=== PATIENT | female | born 2000 | race Asian ===

== ENCOUNTER 2021-06-04 03:40 | Emergency (ER) | payer SELFPAY ==
[~2021-06-04] VITALS: Ht 165.1 cm; Wt 50.3 kg
[2021-06-04 03:40] VITALS: BP_SYST 134
--- NOTE | 2021-06-04 03:45 | NUR ---
Patient triaged and placed in waiting room. VSS and patient appears in no acute distress at this time. Accompanied by BOYFRIEND, awaiting available bed, and MD notified of need for MSE.
--- NOTE | 2021-06-04 04:42 | NUR ---
DR PENAOLZA OUT TO WAITING ROOM TO EVALUATE PT.
[2021-06-04] MEDS ORDERED: METOCLOPRAMIDE HCL 10 MG/2 ML VIAL IVP ONE (05:00)
[2021-06-04] MEDS ORDERED: DIPHENHYDRAMINE INJ 50 MG/ML VIAL IVP ONE (05:00)
[2021-06-04] MEDS ORDERED: ONDANSETRON HCL 4 MG/2 ML VIAL IVP ONE (05:00)
--- NOTE | 2021-06-04 05:49 | NUR ---
BROUGHT BACK TO BED #3 AND REPORT GIVEN TO NURSE
[2021-06-04 05:53] LABS: BASOPHILS % (AUTO) 0.3 % (0.0-2.0); EOSINOPHILS # (AUTO) 0.2 K/uL (0.0-0.4); EOSINOPHILS % (AUTO) 2.3 % (0.0-4.0); HEMATOCRIT 40.1 % (36-48); HEMOGLOBIN 13.5 g/dL (12.0-16.0); LYMPHOCYTES # (AUTO) 1.2 K/uL (1.0-5.5); LYMPHOCYTES % (AUTO) 11.7 % (20.5-51.5); MEAN CORPUSCULAR HEMOGLOBIN 29 pg (27-31); MEAN CORPUSCULAR HGB CONC 34 % (32-36); MEAN CORPUSCULAR VOLUME 88 fL (79.0-98.0); MONOCYTES # (AUTO) 0.4 K/uL (0.0-1.0); MONOCYTES % (AUTO) 4.3 % (1.7-9.3); NEUTROPHILS # (AUTO) 8.2 K/uL (1.8-7.7); NEUTROPHILS % (AUTO) 81.4 % (40.0-70.0); PLATELET COUNT (AUTO) 157 K/uL (130-430); RED BLOOD CELL COUNT(AUTO) 4.58 MIL/uL (4.2-6.2); RED CELL DISTRIBUTION WIDTH 12.2 % (9.0-15.0); WHITE BLOOD COUNT (AUTO) 10.1 K/uL (4.5-11.0)
--- NOTE | 2021-06-04 06:00 | NUR ---
PT WALKED IN C/O ABDOMINAL PAIN SINCE 0200 AFTER DRINKING ORANGE JUICE. PT REPORTS +NAUSEA AND VOMITING. PT ALSO REPORTS SELF MEDICATING WITH KETAMINE. DENIES DIARRHEA OR CONSTIPATION.
[2021-06-04 06:03] LABS: CALCIUM 8.7 mg/dL (8.4-11.0); CREATININE 0.69 mg/dL (0.55-1.30); POTASSIUM 4.2 mmol/L (3.5-5.1)
[2021-06-04 06:07] LABS: TOTAL BILIRUBIN 0.3 mg/dL (0.0-1.0)
--- NOTE | 2021-06-04 06:15 | NUR ---
# 20 gauge angiocath placed to LAC. Use of asceptic technique. Opsite placed over site. Blood return noted. Flushed with 10 cc of normal saline. No evidence of infiltration noted. Patient tolerated well.
--- NOTE | 2021-06-04 07:00 | NUR ---
REPORT GIVEN TO LINDA BARR
--- NOTE | 2021-06-04 07:15 | NUR ---
PT RESTING IN GURNEY, AWAKE, ALERT, EVEN UNLABORED RESPIRATIONS. NO DISTRESS NOTED
[2021-06-04] MEDS ORDERED: ONDA4TAB5 PO (07:23)
[2021-06-04 07:34] VITALS: BP_SYST 127
--- NOTE | 2021-06-04 07:35 | NUR ---
Patient given written and verbal discharge instructions and verbalizes understanding. ER MD discussed with patient the results and treatment provided. Patient in stable condition. ID arm band removed. IV catheter removed intact and dressing applied, no active bleeding. Rx of ZOFRAN given. Patient educated on pain management and to follow up with PMD. Pain Scale 0/10. Opportunity for questions provided and answered. Medication side effect fact sheet provided.
== END 2021-06-04 07:34 | disposition home or self-care (01) ==
LOC: SED 03:40
DX: R11.2 Nausea with vomiting, unspecified (principal); R10.13 Epigastric pain; Z86.19 Personal history of other infectious and parasitic diseases; Z79.899 Other long term (current) drug therapy
CPT/HCPCS: 36415; 80053; 83690; 84702; 85025; 96374; 96375; 99284; J1200; J2405; J2765